=== PATIENT | male | born 1990 | race Caucasian/White ===

== ENCOUNTER 2016-11-11 15:46 | Emergency (ER) | payer BC, MEDICAID, OTHER ==
[2016-11-11] MEDS ORDERED: Ibuprofen TAB* 600 MG PO ONE (15:55)
[2016-11-11 15:58] VITALS: BP 137/72
--- NOTE | 2016-11-11 15:59 | UC ---
UC General HPI - HPI Summary HPI Summary: patient wake up with fever, body ahces, headache, joint pain, no desire to eat, just feels miserable. got the flu shot on 10/28/16. - History of Current Complaint Stated Complaint: SINUS CONGESTION, AND ACHES Time Seen by Provider: 11/11/16 15:55 Hx Obtained From: Patient Onset/Duration: Sudden Onset, Lasting Hours Timing: Constant Onset Severity: Moderate Current Severity: Moderate Pain Intensity: 5 Associated Signs & Symptoms: Positive: Cough, Dizziness, Fever, Headache - Allergy/Home Medications Allergies/Adverse Reactions: Allergies Allergy/AdvReac Type Severity Reaction Status Date / Time No Known Allergies Allergy Verified 11/11/16 15:50 PMH/Surg Hx/FS Hx/Imm Hx Previously Healthy: Yes Endocrine History Of: Denies: Diabetes, Thyroid Disease Cardiovascular History Of: Denies: Cardiac Disorders, Hypertension Respiratory History Of: Reports: Asthma - none in years Denies: COPD GI/ History Of: Denies: Ulcer - Surgical History Surgical History: None - Family History Known Family History: Positive: Hypertension, Other - CA - Social History Alcohol Use: None Substance Use Type: Marijuana Smoking Status (MU): Former Smoker When Did the Patient Quit Smoking/Using Tobacco: 3 yrs ago Review of Systems Constitutional: Fever, Chills, Fatigue Skin: Negative Eyes: Eye Redness ENT: Nasal Discharge Respiratory: Cough Cardiovascular: Negative Gastrointestinal: Other - nausea when trying to eat Genitourinary: Negative Motor: Negative Musculoskeletal: Arthralgia, Myalgia Neurological: Headache Psychological: Negative All Other Systems Reviewed And Are Negative: Yes Physical Exam Triage Information Reviewed: Yes Appearance: Well-Nourished, Ill-Appearing, Pain Distress Vital Signs Reviewed: Yes Eye Exam: Normal Eyes: Positive: Conjunctiva Inflamed ENT: Positive: Pharyngeal erythema, Nasal congestion, Nasal drainage, TM red, Muffled/hoarse voice Dental Exam: Normal Neck exam: Normal Neck: Positive: Supple, Nontender Respiratory Exam: Normal Respiratory: Positive: Chest non-tender, Lungs clear, Normal breath sounds, No respiratory distress, No accessory muscle use Cardiovascular Exam: Normal Cardiovascular: Positive: RRR, No Murmur, Pulses Normal, Tachycardia Abdominal Exam: Normal Abdomen Description: Positive: Nontender, No Organomegaly, Soft Bowel Sounds: Positive: Present Musculoskeletal Exam: Normal Musculoskeletal: Positive: Strength Intact, ROM Intact, No Edema Neurological Exam: Normal Neurological: Positive: Alert, Muscle Tone Normal Psychological Exam: Normal Psychological: Positive: Age Appropriate Behavior Skin Exam: Normal Course/Dx - Course Course Of Treatment: hx obtained, exam performed, ibuprofen given, rapid flu swab - Differential Dx - Multi-Symptom Provider Diagnoses: fever. myalgia, pharyngitis, nausea Discharge - Discharge Plan Condition: Stable Disposition: HOME Patient Education Materials: Fever in Adults (ED) Forms: *Work Release Additional Instructions: Increase fluid intake, get plenty of rest, take medication as prescribed. Continue with ibuprofen and tylenol 4-600 mg every 4-6 hours. follow up as needed.
== END 2016-11-11 16:30 | disposition home or self-care (01) ==
LOC: UCEAST 15:46
DX: R50.9 Fever, unspecified (principal); M79.1 Myalgia; J02.9 Acute pharyngitis, unspecified; R11.0 Nausea; Z87.891 Personal history of nicotine dependence
CPT/HCPCS: 99212; A9270-GY; G0463

== ENCOUNTER 2017-12-07 12:27 | Emergency (ER) | payer BC, OTHER ==
[2017-12-07 13:08] VITALS: BP 139/82
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
--- NOTE | 2017-12-07 14:19 | RAD ---
HISTORY: Left shoulder pain, fall COMPARISONS: None VIEWS: 4, Frontal internal rotation, external rotation, outlet, and axillary views of the left shoulder FINDINGS: BONE DENSITY: Normal. BONES: There is no displaced fracture. JOINTS: There is no arthropathy. ALIGNMENT: There is no dislocation. SOFT TISSUES: Unremarkable. OTHER FINDINGS: None. IMPRESSION: NO ACUTE OSSEOUS INJURY. IF SYMPTOMS PERSIST, RECOMMEND REPEAT IMAGING.
== END 2017-12-07 14:40 | disposition home or self-care (01) ==
LOC: UCEAST 12:27
DX: S43.402A Unspecified sprain of left shoulder joint, initial encounter (principal); W19.XXXA Unspecified fall, initial encounter; Y93.23 Activity, snow (alpine) (downhill) skiing, snowboarding, sledding, tobogganing and snow tubing; Y92.9 Unspecified place or not applicable; F17.210 Nicotine dependence, cigarettes, uncomplicated; E66.9 Obesity, unspecified
CPT/HCPCS: 99211; G0463

== ENCOUNTER 2018-02-26 21:54 | Emergency (ER) | payer SELFPAY ==
[2018-02-26] MEDS ORDERED: Ibuprofen TAB* 800 MG PO ONE (22:08)
[2018-02-27 00:06] VITALS: BP 123/89
[2018-02-27] MEDS ORDERED: Cyclobenzaprine TAB* 10 MG ONE (00:17)
[2018-02-27] MEDS ORDERED: Cyclobenzaprine TAB* 10 MG PO ONE (00:19)
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
== END 2018-02-27 00:26 | disposition home or self-care (01) ==
LOC: ED 21:54
DX: S16.1XXA Strain of muscle, fascia and tendon at neck level, initial encounter (principal); V43.52XA Car driver injured in collision with other type car in traffic accident, initial encounter; Y93.89 Activity, other specified; Y92.410 Unspecified street and highway as the place of occurrence of the external cause; M54.5 Low back pain; F17.210 Nicotine dependence, cigarettes, uncomplicated
CPT/HCPCS: 70450; 72125; 99282; A9270-GY

== ENCOUNTER 2018-08-12 08:24 | Emergency (ER) | payer BC ==
[2018-08-12 08:35] VITALS: BP 145/89
--- NOTE | 2018-08-12 08:53 | ED ---
Respiratory - HPI Summary HPI Summary: patient has had cough for the last two months. today had an episode of productive cough with greenish sputum. hx. of asthma in the past , with regular wheezing now. smoking up to a pack of cigarettes per week, and has been tapering off his usage - History of Current Complaint Chief Complaint: UCRespiratory Stated Complaint: CONGESTED,COUGH Time Seen by Provider: 08/12/18 08:40 Hx Obtained From: Patient Onset/Duration: Gradual Onset, Lasting Weeks Initial Severity: Moderate Current Severity: Moderate Pain Intensity: 2 Sputum Amount: Small Sputum Color: Green Aggravating Factor(s): URI, Allergens Alleviating Factor(s): Nothing Associated Signs and Symptoms: SOB, Wheezing - Risk Factors Status Asthmaticus Risk Factors: Negative Pulmonary Embolism Risk Factors: Negative Cardiac Risk Factors: Negative Pseudomonas Risk Factors: Negative Tuberculosis Risk Factors: Negative - Allergy/Home Medications Allergies/Adverse Reactions: Allergies Allergy/AdvReac Type Severity Reaction Status Date / Time No Known Allergies Allergy Verified 08/12/18 08:35 PMH/Surg Hx/FS Hx/Imm Hx Previously Healthy: Yes Endocrine/Hematology History: Denies: Hx Diabetes, Hx Thyroid Disease Cardiovascular History: Denies: Hx Hypertension Respiratory History: Reports: Hx Asthma - none in years Denies: Hx Chronic Obstructive Pulmonary Disease (COPD) GI History: Denies: Hx Ulcer - Surgical History Surgery Procedure, Year, and Place: NONE Infectious Disease History: No Infectious Disease History: Denies: Hx Clostridium Difficile, Hx Hepatitis, Hx Human Immunodeficiency Virus (HIV), Hx of Known/Suspected MRSA, Hx Shingles, Hx Tuberculosis, Hx Known/ Suspected VRE, Hx Known/Suspected VRSA, History Other Infectious Disease, Traveled Outside the [place] in Last 30 Days - Family History Known Family History: Positive: Cardiac Disease, Hypertension, Diabetes, Other - Cancer, stroke - Social History Alcohol Use: None Hx Substance Use: No Substance Use Type: Reports: Marijuana Hx Tobacco Use: Yes Smoking Status (MU): Current Every Day Smoker Review of Systems Constitutional: Negative Eyes: Negative ENT: Negative Cardiovascular: Negative Positive: Shortness Of Breath, Cough Genitourinary: Negative Musculoskeletal: Negative Skin: Negative Physical Exam Triage Information Reviewed: Yes Vital Signs On Initial Exam: Initial Vitals Temp Pulse Resp BP Pulse Ox 37.2 C 100 20 145/89 99 08/12/18 08:33 08/12/18 08:33 08/12/18 08:33 08/12/18 08:33 08/12/18 08:33 Vital Signs Reviewed: Yes Appearance: Positive: Well-Appearing, No Pain Distress Skin: Positive: Warm, Dry Head/Face: Positive: Normal Head/Face Inspection Eyes: Positive: Normal ENT: Positive: Normal ENT inspection Neck: Positive: Supple Respiratory/Lung Sounds: Positive: Clear to Auscultation Cardiovascular: Positive: Normal Abdomen Description: Positive: Nontender Bowel Sounds: Positive: Present Diagnostics - Vital Signs Vital Signs Temp Pulse Resp BP Pulse Ox 08/12/18 08:33 37.2 C 100 20 145/89 99 - Laboratory Lab Statement: Any lab studies that have been ordered have been reviewed, and results considered in the medical decision making process. Disposition - Diagnoses Provider Diagnoses: Asthma Discharge - Sign-Out/Discharge Documenting (check all that apply): Patient Departure All imaging exams completed and their final reports reviewed: Yes - Discharge Plan Condition: Fair Disposition: HOME Prescriptions: Albuterol HFA INHALER* [Ventolin HFA Inhaler*] 2 puff INH Q6H PRN #1 mdi PRN Reason: Cough Montelukast Sodium TAB* [Singulair TAB*] 10 mg PO BEDTIME #30 tab Referrals: Brian Otoole MD [Primary Care Provider] - - Billing Disposition and Condition Condition: FAIR Disposition: Home
[2018-08-12] MEDS ORDERED: Albuterol 2.5 MG/3 ML NEB.SOL* (0.083%) INH ONE (09:02)
--- NOTE | 2018-08-12 09:17 | RAD ---
INDICATION: Cough for 2 months. Shortness of breath. Chest pain. Previous history of asthma. COMPARISON: No relevant prior exams available on the [facility] PACS for comparison. TECHNIQUE: Dual energy PA and routine lateral views of the chest were obtained. REPORT: Elevated lung volumes and mild prominence of the interstitial markings. No focal pulmonary lesion, compelling alveolar consolidation, pleural effusion, pneumothorax. The heart, pulmonary vasculature, and mediastinal contours are unremarkable. Unremarkable soft tissue contours and osseous structures. IMPRESSION: #. Stigmata of probable obstructive lung disease. No acute pulmonary or cardiac process evident.
== END 2018-08-12 09:45 | disposition home or self-care (01) ==
LOC: UCEAST 08:24
DX: J45.909 Unspecified asthma, uncomplicated (principal); F17.200 Nicotine dependence, unspecified, uncomplicated
CPT/HCPCS: 71046; 99212; G0463

== ENCOUNTER 2019-12-14 09:27 | Emergency (ER) | payer BC, OTHER ==
[2019-12-14 09:57] VITALS: BP 141/82
[2019-12-14 10:21] LABS: Influenza A Molecular Negative (Negative); Influenza B Molecular Negative (Negative)
--- NOTE | 2019-12-14 10:22 | UC ---
FLU HPI - HPI Summary HPI Summary: 29-year-old male with flulike symptoms for the past 4 days. - History of Current Complaint Chief Complaint: UCGeneralIllness Stated Complaint: FLU LIKE SYMPTOMS Time Seen by Provider: 12/14/19 09:58 Hx Obtained From: Patient Onset/Duration: Sudden Onset, Lasting Days Severity Currently: Mild Severity Initially: Moderate Pain Intensity: 3 Associated Signs & Symptoms: Positive: Fever, Myalgia, Cough, Nasal Congestion, Headache Related Hx: Possible Flu/Infectious Exposure - Allergy/Home Medications Allergies/Adverse Reactions: Allergies Allergy/AdvReac Type Severity Reaction Status Date / Time No Known Allergies Allergy Verified 08/12/18 08:35 PMH/Surg Hx/FS Hx/Imm Hx Previously Healthy: Yes - Surgical History Surgical History: Yes Surgery Procedure, Year, and Place: NONE - Family History Known Family History: Positive: Cardiac Disease, Hypertension, Diabetes, Other - Cancer, stroke - Social History Occupation: Employed Full-time Alcohol Use: Rare Substance Use Type: Marijuana Smoking Status (MU): Current Every Day Smoker When Did the Patient Quit Smoking/Using Tobacco: 3 yrs ago - Immunization History Most Recent Influenza Vaccination: OCT 2016 Review of Systems All Other Systems Reviewed And Are Negative: Yes Constitutional: Positive: Fever, Chills ENT: Positive: Nasal Discharge Respiratory: Positive: Cough - Dry nonproductive cough Musculoskeletal: Positive: Myalgia Neurological/Mental Status: Positive: Headache - Mild headache which is improving Is Patient Immunocompromised?: No Physical Exam Triage Information Reviewed: Yes Appearance: Well-Appearing, No Pain Distress, Well-Nourished Vital Signs: Initial Vital Signs Temp 99 F 12/14/19 09:52 Pulse 92 12/14/19 09:52 Resp 16 12/14/19 09:52 BP 141/82 12/14/19 09:52 Pulse Ox 99 12/14/19 09:52 Vital Signs Reviewed: Yes Eyes: Positive: Conjunctiva Clear ENT: Positive: Pharynx normal, Nasal drainage - Clear nasal coryza, TMs normal, Uvula midline Neck: Positive: Supple, Nontender, No Lymphadenopathy Respiratory: Positive: Lungs clear, Normal breath sounds, No respiratory distress, No accessory muscle use Cardiovascular: Positive: RRR, No Murmur, Pulses Normal, Brisk Capillary Refill Musculoskeletal Exam: Normal Neurological Exam: Normal Psychological Exam: Normal Skin Exam: Normal Flu Course/Dx - Course Course Of Treatment: Rapid flu test: Negative Although the flu test was negative I believe the patient has a flulike illness. He is comfortable here and nontoxic. Does Not appear ill. - Differential Dx/Diagnosis Provider Diagnosis: Flu-like symptoms Discharge ED - Sign-Out/Discharge Documenting (check all that apply): Patient Departure All imaging exams completed and their final reports reviewed: No Studies - Discharge Plan Condition: Good Disposition: HOME Patient Education Materials: Influenza (DC) Forms: *Work Release Referrals: Brian Otoole MD [Primary Care Provider] - Additional Instructions: Rest, increase fluids, [id number] cold medicines as directed. Definite follow-up with your primary care provider if no improvement in 3 or 4 days or if continued fever. - Billing Disposition and Condition Condition: GOOD Disposition: Home
== END 2019-12-14 10:51 | disposition home or self-care (01) ==
LOC: UCEAST 09:27
DX: R50.9 Fever, unspecified (principal); M79.10 Myalgia, unspecified site; R05 Cough; R09.81 Nasal congestion; R51 Headache; F17.200 Nicotine dependence, unspecified, uncomplicated
CPT/HCPCS: 99211; G0463